=== PATIENT | female | born 1945 | race Caucasian/White ===

== ENCOUNTER 2016-10-16 06:24 | Day surgery (SDC) | payer MEDICARE, MEDICAID ==
--- NOTE | 2016-10-09 12:51 | HP ---
CC: Dr. Steele HISTORY AND PHYSICAL: DATE OF PLANNED ADMISSION AND SURGERY: 10/16/16 HISTORY OF PRESENT ILLNESS: Ms. Robertson is a 71-year-old white female with metastatic uterine carcinoma, obstructed right ureter, status post placement of right ureteral stent, who is admitted for cystoscopy and right ureteral stent exchange. Ms. Robertson was diagnosed with uterine carcinoma in January 2013 and underwent radical hysterectomy. Postoperatively she was noted to have obstruction of the distal Rt ureter, and had right ureteral stent placed in February 2013. Since that time, she was noted to have metastatic disease and has been on chemotherapy. The ureteral obstruction had persisted and has been managed by periodic ureteral stent exchange. The right ureteral stent was last exchanged in March 2016. She is now admitted for elective right ureteral stent exchange. The patient had preoperative urine culture which showed no growth. PAST MEDICAL HISTORY AND SYSTEM REVIEW: Negative otherwise . She is hypertensive maintained on amlodipine 10 mg daily. She has been on systemic chemotherapy for malignancy. ALLERGIES: She denies any allergies to medications. PHYSICAL EXAMINATION GENERAL: Pleasant white female, who looks pale and does look like she has lost weight. VITAL SIGNS: Blood pressure 120/80, pulse of 90. LUNGS: Clear. Now she has no CVA tenderness. HEART: Regular and rhythmic. No murmurs. ABDOMEN: Normal. IMPRESSION: Metastatic uterine carcinoma with right ureteral obstruction, managed by right ureteral stent drainage. PLAN: Plan is for cystoscopy and right ureteral stent exchange. I discussed the above plans with the patient and all her questions were answered. [id number]/CPS #: [id number] MTDD
[~2016-10-16 06:24] MED LIST: Sodium Citrate/Citric Acid* 15 ML UDC PO ONE
[2016-10-16] MEDS ORDERED: Buffered Lidocaine 1% SYRIN* 5 ML/SYR SYRINGE ONE (06:49)
[2016-10-16] MEDS ORDERED: cefTRIAXone(*) 2 GM ADDV.VIAL IVPB ONE (06:49)
[2016-10-16] MEDS ORDERED: Sodium Citrate/Citric Acid* 15 ML UDC ONE (06:49)
[2016-10-16] MEDS ORDERED: Iohexol 180 (CONTRAST) 10 ML SDV IV ONE (07:30)
[2016-10-16] MEDS ORDERED: fentaNYL* 50 MCG/ML 2 ML VIAL (100 MCG VIAL) IV PRN (08:06)
[2016-10-16] MEDS ORDERED: Ketorolac INJ* 30 MG/ML 1 ML VIAL IV PRN (08:06)
[2016-10-16] MEDS ORDERED: Ondansetron INJ* 2 MG/ML VIAL IV PRN (08:06)
--- NOTE | 2016-10-16 08:51 | RAD ---
INDICATION: Retrograde cystogram, ureteral stent exchange COMPARISONS: April 03, 2016 TECHNIQUE: Fluoroscopy was provided for a retrograde pyelogram and stent placement. Total fluoroscopy time is: 8 seconds FINDINGS: Spot images demonstrate contrast within the renal collecting system. A ureteral stent is noted. IMPRESSION: FLUOROSCOPY WAS PROVIDED FOR A RETROGRADE PYELOGRAM AND STENT PLACEMENT CPT II Codes: 6045F
[2016-10-16 09:14] VITALS: BP 150/85
--- NOTE | 2016-10-16 12:04 | OP ---
CC: Dr. Steele OPERATIVE REPORT: DATE OF OPERATION: 10/16/16 DATE OF : 49 SURGEON: Fidel Dahl MD ANESTHESIOLOGIST: Angel Mathur DO ANESTHESIA: General. PRE-OP DIAGNOSES: 1. Metastatic uterine carcinoma. 2. Right ureteral obstruction due to above. 3. Status post placement of right ureteral stent. POST-OP DIAGNOSES: 1. Metastatic uterine carcinoma. 2. Right ureteral obstruction due to above. 3. Status post placement of right ureteral stent. OPERATIVE PROCEDURES: 1. Cystoscopy. 2. Right retrograde pyelography. 3. Right ureteral stent exchange (black silicone, 24-cm, 8.5-Mauritian). INDICATION FOR PROCEDURE: Mrs. Robertson is a 71-year-old white female with metastatic uterine carcinoma that had resulted in right ureteral obstruction. She had been managed with right ureteral stent dra palafox. The stent was last replaced about 6 months ago. The patient now is admitted for ureteral st ent exchange. Pathology at cystoscopy, the bladder mucosa showed some hyperemia consistent with the irritation of the stent. The distal limb of the stent was seen coming from the right ureteral orif ice. Upon right retrograde pyelography, there was some fullness of the collecting system and some d ilatation of the proximal ureter, but no olegario hydronephrosis. DESCRIPTION OF PROCEDURE: After successful general anesthesia, the patient was placed in the lithot avtar position and was prepped and draped in the usual manner. Cystoscopy was performed. The bladder was inspected and the above findings were noted. The distal limb of the stent was pulled to the lev el of the urethral meatus. A flexible-tip guidewire was then introduced through the lumen of the st ent and positioned in the area of the renal pelvis. Retrograde pyelography was performed. A black silicone stent, 24-cm long, 8.5 Mauritian was then fed on top of the guidewire and positioned with the proximal end coiling in the renal pelvis and the distal end-coiling inside the bladder. There was g ood drainage of contrast from the kidney and no extravasation. The patient tolerated the procedure well and left the operating room in good condition. The plan is to follow with the patient for poss ible recurrence of the hydronephrosis and replacement of the stent as needed. [id number]/[facility] #: [id number]
== END 2016-10-16 09:18 | disposition home or self-care (01) ==
LOC: OR 06:24
PROVIDERS: ATTEND Urology
DX: C79.82 Secondary malignant neoplasm of genital organs (principal); N13.5 Crossing vessel and stricture of ureter without hydronephrosis
CPT/HCPCS: 74420; A9270-GY; C1876; J0696

== ENCOUNTER 2016-12-26 15:11 | Inpatient (IN) | payer MEDICARE, MEDICAID ==
[2016-12-26] MEDS ORDERED: PROCHLORPERAZINE INJ 5 MG/ML 2 ML VIAL IV PRN (15:34)
[2016-12-26] MEDS ORDERED: Temazepam CAP* 15 MG PO PRN (15:35)
[2016-12-26] MEDS ORDERED: NS 0.9% 1000 ML* 1,000 ML IV SCH (15:45)
[2016-12-26] MEDS ORDERED: cefTRIAXone VIAL(*) 1,000 MG in NS 0.9% 50 ML* 50 ML IVPB SCH (19:00)
[2016-12-26] MEDS: Docusate CAP* 100 MG PO SCH (21:12)
[2016-12-26] MEDS: Acetaminophen TAB* 325 MG PO PRN (23:26)
[2016-12-27 06:22] LABS: Hematocrit 26 % (35-47); Hemoglobin 8.7 g/dl (12.0-16.0); Mean Corpuscular HGB Conc 33 g/dl (31-36); Mean Corpuscular Hemoglobin 35 pg (27-31); Mean Corpuscular Volume 104 fL (80-97); Mean Platelet Volume 8 um3 (7.4-10.4); Red Blood Count 2.51 10^6/ul (4.0-5.4); Red Cell Distribution Width 14 % (10.5-15)
[2016-12-27] MEDS: Acetaminophen TAB* 325 MG PO PRN ×2 (06:26→17:43)
[2016-12-27 06:40] LABS: Albumin 2.6 g/dL (3.2-5.2); BUN/Creatinine Ratio 13.1 (8-20); Calcium 8.1 mg/dL (8.6-10.3); Globulin 3.3 g/dL (2-4); Potassium 4.6 mmol/L (3.5-5.0); Total Bilirubin 0.3 mg/dL (0.2-1.0); Total Protein 5.9 g/dL (6.4-8.9)
[2016-12-27] MEDS: amLODIPine TAB* 5 MG PO SCH (08:50)
[2016-12-27] MEDS ORDERED: Pneumococcal Vac Polyvalent* 0.5 ML VIAL IM ONE (09:00)
--- NOTE | 2016-12-27 10:39 | PN ---
Progress Note - Progress Note Date of Service: 12/27/16 SOAP: ADDENDUM: Agree with note from RY Pugh. Patient seen and examined. She is feeling fatigued, no different then admission. Has has pressure when tries to urinate. PE: VSS, No distress, CTA, no abdominal pain, no MIRANDA and good pulses. CT reviewed and shows progressive disease and new hydronephrosis. Labs with leukocytosis and ARF on CRI. - Agree with Zosyn and CXR - New stent once afebrile. - Aggressive hydration and check lactate [] []
[2016-12-27] MEDS ORDERED: Iohexol 180 (CONTRAST) 10 ML SDV IV ONE (10:57)
[2016-12-27] MEDS ORDERED: Zosyn per Pharmacy* NOTE FOLLOW UP SCH (11:00)
[2016-12-27] MEDS ORDERED: cefTRIAXone VIAL(*) 1,000 MG VIAL ONE ×2 (11:16→11:35)
[2016-12-27] MEDS ORDERED: Midazolam* 1 MG/ML 5 ML VIAL (5 MG) ONE (11:40)
[2016-12-27] MEDS ORDERED: fentaNYL* 50 MCG/ML 2 ML VIAL (100 MCG VIAL) ONE (11:49)
[2016-12-27] MEDS ORDERED: Propofol* 10 MG/ML 20 ML BTL IV PUSH ONE (12:05)
[2016-12-27] MEDS ORDERED: HYDROmorphone* 1 MG/ML 1 ML SYR IV PRN (12:11)
[2016-12-27] MEDS ORDERED: fentaNYL* 50 MCG/ML 2 ML VIAL (100 MCG VIAL) IV PRN (12:11)
[2016-12-27] MEDS ORDERED: DiMENhydriNATE IV* 50 MG/ML VIAL IV PUSH PRN (12:11)
[2016-12-27] MEDS ORDERED: Ondansetron INJ* 2 MG/ML VIAL IV PRN (12:11)
--- NOTE | 2016-12-27 14:56 | RAD ---
HISTORY: Fever COMPARISONS: CT of the chest dated December 04, 2016 VIEWS: 2: Frontal and lateral views of the chest. FINDINGS: CARDIOMEDIASTINAL SILHOUETTE: The cardiomediastinal silhouette is normal. MINDY: The mindy are normal. PLEURA: There is a small right pleural effusion LUNG PARENCHYMA: Again noted are multiple pulmonary parenchymal nodules ABDOMEN: The upper abdomen is clear. There is no subphrenic gas. BONES AND SOFT TISSUES: No bone or soft tissue abnormalities are noted. OTHER: There is left-sided chest port from a subclavian approach with the tip overlying the superior vena cava IMPRESSION: 1. SMALL RIGHT PLEURAL EFFUSION. 2. AGAIN NOTED ARE MULTIPLE PULMONARY NODULES
--- NOTE | 2016-12-27 15:12 | RAD ---
INDICATION: Right stent exchange COMPARISONS: None relevant TECHNIQUE: Fluoroscopy was provided for a retrograde pyelogram and stent placement. Total fluoroscopy time is: 5 seconds FINDINGS: Contrast is noted within the renal collecting system on the right. A ureteral stent is noted. IMPRESSION: FLUOROSCOPY WAS PROVIDED FOR A RETROGRADE PYELOGRAM AND STENT PLACEMENT CPT II Codes: 6045F
[2016-12-27] MEDS ORDERED: cefTRIAXone VIAL(*) 1,000 MG in NS 0.9% 50 ML* 50 ML IVPB SCH (15:30)
[2016-12-27] MEDS: Docusate CAP* 100 MG PO SCH (21:55)
--- NOTE | 2016-12-28 02:34 | OP ---
CC: Dr. Steele * DATE OF OPERATION: 12/27/16 - ROOM #402 DATE OF : 49 SURGEON: Kehinde Zavaleta MD ANESTHESIOLOGIST: Jorge Cook MD ANESTHESIA: Intravenous sedation. PRE-OP DIAGNOSIS: Right hydronephrosis. POST-OP DIAGNOSIS: Right hydronephrosis. OPERATIVE PROCEDURE: Cystoscopy, right retrograde pyelogram, right ureteral stent change. INDICATIONS: Nohemi Robertson is a 71-year-old lady with advanced gynecologic malignancy causing right hydronephrosis, who has been managed with an indwelling right stent. She was admitted with fever and was noted to have worsening right hydronephrosis in spite of having a stent in position, and is now being brought in for urgent stent change. COMPLICATIONS: None. STENT USED: 8.5-Swedish, 24-cm silicone stent, right ureter. DESCRIPTION OF PROCEDURE: After administration of intravenous sedation, the patient was placed in dorsal lithotomy position. Sequential compression devices were in place and functioning. Initial cystoscopy revealed some cloudy , purulent urine in the bladder. The previously placed stent was seen and removed. A guidewire was introduced into the right ureter. Retrograde pyelogram was done in the limited fashion to avoid bacteremia and fullness of the right collecting system was noted. About 30 cc of thick pus was aspirated from the right kidney and some of it was sent for culture. A new 8.5-Swedish, 24 -cm silicone stent was introduced in position under fluoroscopy with good proximal and distal positioning obtained. The patient tolerated the procedure satisfactorily and was transferred back to the recovery area in stable condition. [id number]/CPS #: [id number] [facility]
[2016-12-28 05:28] LABS: Hematocrit 25 % (35-47); Hemoglobin 8.2 g/dl (12.0-16.0); Mean Corpuscular HGB Conc 33 g/dl (31-36); Mean Corpuscular Hemoglobin 35 pg (27-31); Mean Corpuscular Volume 104 fL (80-97); Mean Platelet Volume 7 um3 (7.4-10.4); Red Blood Count 2.37 10^6/ul (4.0-5.4); Red Cell Distribution Width 14 % (10.5-15); White Blood Count 8.6 10^3/ul (3.5-10.8)
[2016-12-28 06:47] LABS: Albumin 2.2 g/dL (3.2-5.2); Calcium 7.6 mg/dL (8.6-10.3); EGFR African American 18.7 (>60); EGFR Non-African American 14.6 (>60); Globulin 3.1 g/dL (2-4); Potassium 4.3 mmol/L (3.5-5.0); Total Bilirubin 0.3 mg/dL (0.2-1.0); Total Protein 5.3 g/dL (6.4-8.9)
[2016-12-28] MEDS: amLODIPine TAB* 5 MG PO SCH (07:58)
[2016-12-28] MEDS: Docusate CAP* 100 MG PO SCH (22:45)
[2016-12-29 05:44] LABS: Hematocrit 28 % (35-47); Hemoglobin 9.3 g/dl (12.0-16.0); Mean Corpuscular HGB Conc 34 g/dl (31-36); Mean Corpuscular Hemoglobin 34 pg (27-31); Mean Corpuscular Volume 102 fL (80-97); Mean Platelet Volume 7 um3 (7.4-10.4); Red Blood Count 2.72 10^6/ul (4.0-5.4); Red Cell Distribution Width 14 % (10.5-15); White Blood Count 7.3 10^3/ul (3.5-10.8)
[2016-12-29] MEDS: amLODIPine TAB* 5 MG PO SCH (09:51)
[2016-12-29] MEDS: Heparin VIAL(*) 5000 UNITS/ML VIAL (FIVE THOUSAND) SUBCUT SCH ×2 (14:16→22:39)
[2016-12-29 14:30] LABS: Hematocrit 26 % (35-47); Hemoglobin 8.5 g/dl (12.0-16.0); Mean Corpuscular HGB Conc 33 g/dl (31-36); Mean Corpuscular Hemoglobin 34 pg (27-31); Mean Corpuscular Volume 103 fL (80-97); Mean Platelet Volume 7 um3 (7.4-10.4); Red Blood Count 2.52 10^6/ul (4.0-5.4); Red Cell Distribution Width 14 % (10.5-15); White Blood Count 6.3 10^3/ul (3.5-10.8)
[2016-12-29 14:40] LABS: EGFR African American 20.8 (>60); EGFR Non-African American 16.2 (>60)
[2016-12-29 14:41] LABS: BUN/Creatinine Ratio 11.2 (8-20); Calcium 7.3 mg/dL (8.6-10.3); EGFR Non-African American 16.3 (>60); Potassium 3.8 mmol/L (3.5-5.0)
[2016-12-30] MEDS: Heparin VIAL(*) 5000 UNITS/ML VIAL (FIVE THOUSAND) SUBCUT SCH (05:46)
[2016-12-30 06:33] LABS: BUN/Creatinine Ratio 9.7 (8-20); Calcium 7.4 mg/dL (8.6-10.3); EGFR African American 22.8 (>60); EGFR Non-African American 17.7 (>60); Potassium 3.6 mmol/L (3.5-5.0)
[2016-12-30 10:14] VITALS: BP 128/54
[2016-12-30] MEDS: amLODIPine TAB* 5 MG PO SCH (10:15)
--- NOTE | 2016-12-30 21:57 | DS ---
DISCHARGE SUMMARY: DATE OF ADMISSION: 12/26/16 DATE OF DISCHARGE: 12/30/16 ATTENDING PHYSICIAN: Dr. Steele * (DICTATED BY RY RAMOS) PRINCIPAL DIAGNOSES: 1. Hydronephrosis. 2. Acute renal insufficiency. 3. Urinary tract infections, status post stent placement in the right ureter, size changer by Dr. Zavaleta. 4. Ovarian cancer DISCHARGE MEDICATION : unchanged from her home medications. HISTORY: The patient is a 71-year-old white female with a history of ovarian cancer who is status post stent placement, came to the office for fever and malaise and found to have an elevated white count and a creatinine of 3.4, which was 1.5 plus per baseline. She was diaz cultured and placed on antibiotic therapy and a renal ultrasound was obtained and found to have a new hydronephrosis on the right. A consult was initiated with Dr. Dahl and Dr. Zavaleta for which they exchanged her stent out and per my conversation with Dr. Zavaleta on the phone, he found pus up in to the calyx of the kidney and would need continued IV antibiotics and hospitalization. The patient defervesced and with aggressive fluid hydration, the patient's creatinine has somewhat normalized almost to her baseline at 2.6. She feels much better, is eating better and would like to go home. She has finished her course of antibiotic therapy and she will finish her last dose of Zosyn today. She will return to Dr. Steele's office on 01/03/17, for her next Avastin if she feels well enough or soon as scheduled for followup hospital visit. She will also need to follow with Dr. Dahl in the office status post stent replacement. Her vital signs are afebrile and stable upon the day of her discharge. Her Toure was removed and she will need to urinate on her own prior to her discharge. RY RAMOS [id number]/[facility] #: [id number] MTDD
== END 2016-12-30 16:05 | disposition home or self-care (01) | DRG 694 ==
LOC: MED 15:40
PROVIDERS: ADMIT Internal Medicine Hematology & Oncology; ATTEND Internal Medicine Hematology & Oncology
PROC: 0TP98DZ Removal of Intraluminal Device from Ureter, Via Natural or Artificial Opening Endoscopic (ICD-10-PCS; 2016-12-27)
PROC: 0T768DZ Dilation of Right Ureter with Intraluminal Device, Via Natural or Artificial Opening Endoscopic (ICD-10-PCS; 2016-12-27)
PROC: BT1DYZZ Fluoroscopy of Right Kidney, Ureter and Bladder using Other Contrast (ICD-10-PCS; principal; 2016-12-27 12:00)
DX: N13.39 Other hydronephrosis (principal); N17.9 Acute kidney failure, unspecified; C54.9 Malignant neoplasm of corpus uteri, unspecified; E78.00 Pure hypercholesterolemia, unspecified; F17.210 Nicotine dependence, cigarettes, uncomplicated; N18.9 Chronic kidney disease, unspecified; Z79.899 Other long term (current) drug therapy
CPT/HCPCS: 36415; 71020; 74020; 74420; 76775; 80048; 80053; 81003; 81015; 82565; 83605; 84520; 85025; 85610; 85730; 86304; 87040; 87086; 90732; 94760; 99232; 99238; 99406; A9270-GY; C1876; J0696; J1644; J2250; J2543; J2704; J3010; J9035

== ENCOUNTER 2017-04-16 06:13 | Day surgery (SDC) | payer MEDICARE, MEDICAID ==
--- NOTE | 2017-03-28 07:42 | HP ---
CC: Dr. Steele * HISTORY AND PHYSICAL: DATE OF PLANNED ADMISSION AND SURGERY: 04/16/17 HISTORY OF PRESENT ILLNESS: Mrs. Robertson is a 71-year-old white female with metastatic uterine carcinoma, right ureteral obstruction on chronic right ureteral stent drainage, who is admitted for cystoscopy and right ureteral stent exchange. Mrs. Robertson has metastatic uterine carcinoma that had resulted in obstruction of the distal right ureter. She had been managed with a right ureteral stent placement. The stent had been periodically replaced over the last 4 years. The patient was treated with chemotherapy. More recently, her tumor has recurred and has had progression of this metastatic disease. She is presently on chemotherapy, followed by Dr. Steele. The right ureteral stent was last replaced on 12/27/16. At that time, it was done on an urgent basis because of right hydronephrosis and right pyelonephritis. She has had no recurrence of her renal or bladder symptoms. She was recently evaluated in the office with renal ultrasound, which showed moderate right hydronephrosis and right ureteral stent in good position. Because of the above history and finding and the right hydronephrosis and the concern about acute obstruction and infection, patient is admitted for right ureteral stent exchange. PAST MEDICAL HISTORY AND SYSTEM REVIEW: She is hypertensive, on amlodipine 10 mg daily. MEDICATIONS: She has been on systemic chemotherapy for her uterine carcinoma. ALLERGIES: She denies any allergies to medications. PHYSICAL EXAMINATION GENERAL: Pleasant white female who looks pale and has lost weight since last seen. VITAL SIGNS: Blood pressure 140/80, pulse of 90, temperature 98. LUNGS: Clear. HEART: Regular and rhythmic. No murmurs. ABDOMEN: Moderately distended but no masses are felt and no CVA tenderness. IMPRESSION: Metastatic uterine carcinoma with right ureteral obstruction managed with chronic right ureteral stent drainage. PLAN: For cystoscopy and right ureteral stent exchange. I discussed the above plans with the patient and all her questions were answered. [id number]/[facility] #: [id number] MTDD
[~2017-04-16 06:13] MED LIST changes: +Buffered Lidocaine 0.9% SYRIN* 5 ML/SYR SYRINGE INTRADERM ONE; +Famotidine IV* 10 MG/ML 2 ML (20 mg) IV ONE; +Metoclopramide TAB* 10 MG PO ONE; -Sodium Citrate/Citric Acid* 15 ML UDC PO ONE
[2017-04-16] MEDS ORDERED: Famotidine IV* 10 MG/ML 2 ML (20 mg) ONE (06:32)
[2017-04-16] MEDS ORDERED: Metoclopramide TAB* 10 MG ONE (06:32)
[2017-04-16] MEDS ORDERED: cefTRIAXone(*) 2 GM ADDV.VIAL IVPB ONE (06:33)
[2017-04-16] MEDS ORDERED: Buffered Lidocaine 0.9% SYRIN* 5 ML/SYR SYRINGE ONE (06:33)
[2017-04-16] MEDS ORDERED: Iohexol 180 (CONTRAST) 10 ML SDV IV ONE (07:25)
[2017-04-16] MEDS ORDERED: Lidocaine 2% PF * 5 ML VIAL ONE (07:25)
[2017-04-16] MEDS ORDERED: KETAMINE HCL* 50 MG/ML 10 ML VIAL ONE (07:25)
[2017-04-16] MEDS ORDERED: Propofol* 10 MG/ML 20 ML BTL IV PUSH ONE (07:25)
[2017-04-16] MEDS ORDERED: Dexamethasone IV* 4 MG/ML 1 ML (4 MG) ONE (07:25)
[2017-04-16] MEDS ORDERED: Ketorolac INJ* 30 MG/ML 1 ML VIAL ONE (07:25)
[2017-04-16] MEDS ORDERED: Ondansetron INJ* 2 MG/ML VIAL ONE (07:25)
[2017-04-16] MEDS ORDERED: fentaNYL* 50 MCG/ML 2 ML VIAL (100 MCG VIAL) ONE (07:25)
[2017-04-16] MEDS ORDERED: Midazolam* 1 MG/ML 5 ML VIAL (5 MG) ONE (07:26)
[2017-04-16] MEDS ORDERED: fentaNYL* 50 MCG/ML 2 ML VIAL (100 MCG VIAL) IV PRN (08:32)
[2017-04-16] MEDS ORDERED: Ondansetron INJ* 2 MG/ML VIAL IV PRN (08:32)
[2017-04-16] MEDS ORDERED: oxyCODONE TAB* 5 MG TAB PO PRN (08:32)
--- NOTE | 2017-04-16 08:47 | RAD ---
CPT II Codes: 6045F INDICATION: Right ureteral stent exchange. TECHNIQUE: Intraoperative fluoroscopy was provided during right ureteral stent exchange. FINDINGS: 6 spot films depict retrograde pyelogram exhibiting mild to moderate hydronephrosis followed by deployment of an anatomically aligned right ureteral stent. Fluoroscopy time: 6 seconds IMPRESSION: As above.
[2017-04-16 09:40] VITALS: BP 139/77
--- NOTE | 2017-04-16 12:59 | OP ---
CC: Dr. Steele * DATE OF OPERATION: 04/16/17 - [facility] DATE OF : 49 SURGEON: Fidel Dahl MD ANESTHESIOLOGIST: Dr. Satinder Powell. ANESTHESIA: General. PRE-OP DIAGNOSES: 1. Metastatic uterine carcinoma. 2. Right ureteral obstruction due to above. 3. Status post placement right ureteral stent. POST-OP DIAGNOSES: 1. Metastatic uterine carcinoma. 2. Right ureteral obstruction due to above. 3. Status post placement right ureteral stent. OPERATIVE PROCEDURE: 1. Cystoscopy. 2. Right retrograde pyelography. 3. Right ureteral stent exchange (black silicone, 24 cm, 8.5-Honduran). INDICATION FOR PROCEDURE: Mrs. Robertson is a 71-year-old white female with metastatic endometrial uterine carcinoma that resulted in right ureteral obstruction. This has been managed by right ureteral stent, which has been replaced periodically over the last 4 years. She had urgent replacement of the stent 3 months ago because of hydronephrosis associated with pyelonephritis. A recent renal ultrasound in the office showed moderate right hydronephrosis indicating the stent starting to get occluded. The patient is being brought in for right ureteral stent exchange. PATHOLOGY: At cystoscopy, the bladder mucosa showed patchy hyperemia consistent with cystitis or irritation from the ureteral stent. Right retrograde pyelography showed moderate right hydronephrosis. There were no suspicious lesions in the bladder to suggest malignancy. DESCRIPTION OF PROCEDURE: After successful general anesthesia, the patient was placed in the lithotomy position and was prepped and draped for a cystoscopy. Cystoscopy was performed. The bladder was inspected and the above findings were noted. The distal limb of the stent was grasped and pulled out to the level of the urethral meatus. A flexible tip guidewire was introduced through the lumen of the stent and positioned in the area of the renal pelvis. Retrograde pyelography was then performed demonstrating the moderate hydronephrosis. A black silicone stent, 24 cm long, 8.5-Honduran was then placed with the proximal end coiling in the renal pelvis and the distal end coiling inside the bladder. The patient tolerated the procedure well and left the operating room in good condition. [id number]/CPS #: [id number] MTDD
== END 2017-04-16 10:00 | disposition home or self-care (01) ==
LOC: OR 06:13
PROVIDERS: ATTEND Urology
DX: C79.82 Secondary malignant neoplasm of genital organs (principal); N13.1 Hydronephrosis with ureteral stricture, not elsewhere classified; I10 Essential (primary) hypertension; Z79.899 Other long term (current) drug therapy
CPT/HCPCS: 74420; A9270-GY; C1876; J0696; J1100; J1885; J2250; J2405; J2704; J3010

== ENCOUNTER 2017-08-20 07:37 | Day surgery (SDC) | payer MEDICARE, MEDICAID ==
--- NOTE | 2017-08-18 16:58 | HP ---
CC: Dr. Shay Steele * HISTORY AND PHYSICAL: DATE OF PLANNED ADMISSION AND SURGERY: 08/20/17 HISTORY OF PRESENT ILLNESS: Ms. Robertson is a 72-year-old white female with metastatic uterine carcinoma, right ureteral obstruction, status post placement of right ureteral stent, who is admitted for cystoscopy and right ureteral stent exchange. Ms. Robertson was diagnosed with metastatic uterine carcinoma in 2012. She was treated by hysterectomy, radiation therapy, and brachytherapy. She was noted in February 2013 to have an obstructed distal right ureter and she has been managed with right ureteral stent. The stent was last replaced in March 2017. Her disease has advanced and recent CT of the chest, abdomen, and pelvis showed multiple pulmonary parenchymal lesions, large liver masses, and retroperitoneal lymphadenopathy. She is on chemotherapy by Dr. Steele. She has decreased renal function and her last serum creatinine was 3.5 consistent with her previous numbers. The last CT done 2 months ago showed no hydronephrosis indicating that the decreased renal function is not due to obstruction. The patient also had recurrent urinary tract infections and her last urine culture showed gram-neg bacilli and she was started on Augmentin prior to this admission. ALLERGIES: The patient has no allergies to medications. PHYSICAL EXAMINATION GENERAL: She is a pleasant white female, who looks pale and losing weight. LUNGS: Exam of the lungs is normal. BACK: She has mild right CVA tenderness. ABDOMEN: Normal. IMPRESSION: 1. Metastatic uterine carcinoma, on chemotherapy, with obstructed right ureter , managed with chronic right ureteral stent. 2. Urinary tract infection. PLAN: For cystoscopy and right ureteral stent exchange. I discussed the above plans with the patient and all her questions were answered. [id number]/[facility] #: [id number] [facility]
[~2017-08-20 07:37] MED LIST changes: +Dexamethasone IV* 4 MG/ML 1 ML (4 MG) IV SLOW PU ONE; -Metoclopramide TAB* 10 MG PO ONE; +cefTRIAXone(*) 1 GM in NS 0.9% 50 ML* 50 ML IVPB ONE
[2017-08-20] MEDS ORDERED: Dexamethasone IV* 4 MG/ML 1 ML (4 MG) ONE (07:55)
[2017-08-20] MEDS ORDERED: cefTRIAXone(*) 1 GM ADVAN/BAG ONE (07:55)
[2017-08-20] MEDS ORDERED: Famotidine IV* 10 MG/ML 2 ML (20 mg) ONE (07:55)
[2017-08-20] MEDS ORDERED: Iohexol 180 (CONTRAST) 10 ML SDV IV ONE (08:58)
[2017-08-20] MEDS ORDERED: Ketorolac INJ* 30 MG/ML 1 ML VIAL IV PRN (08:59)
[2017-08-20] MEDS ORDERED: fentaNYL* 50 MCG/ML 2 ML VIAL (100 MCG VIAL) IV PRN (08:59)
[2017-08-20] MEDS ORDERED: Naloxone* 0.4 MG/ML 1 ML VIAL IV PRN (08:59)
[2017-08-20] MEDS ORDERED: HYDROcodone/ACETAMIN 5-325 MG* 1 TAB PO PRN (08:59)
[2017-08-20] MEDS ORDERED: DiMENhydriNATE IV* 50 MG/ML VIAL IV PUSH PRN (08:59)
[2017-08-20] MEDS ORDERED: Lidocaine 2% PF * 5 ML VIAL ONE (09:12)
[2017-08-20] MEDS ORDERED: Propofol* 10 MG/ML 20 ML BTL IV PUSH ONE (09:12)
[2017-08-20] MEDS ORDERED: Ondansetron INJ* 2 MG/ML VIAL ONE (10:15)
[2017-08-20] MEDS ORDERED: fentaNYL* 50 MCG/ML 2 ML VIAL (100 MCG VIAL) ONE (10:17)
[2017-08-20 11:56] VITALS: BP 144/72
--- NOTE | 2017-08-20 23:19 | OP ---
CC: Dr. Steele * DATE OF OPERATION: 08/20/17 - [facility] DATE OF : 49 SURGEON: Fidel Dahl MD ANESTHESIOLOGIST: Jose L Lawler MD ANESTHESIA: General. PRE-OP DIAGNOSES: 1. Metastatic uterine carcinoma. 2. Right ureteral obstruction due to above. 3. Status post placement of right ureteral stent. POST-OP DIAGNOSIS: 1. Metastatic uterine carcinoma. 2. Right ureteral obstruction due to above. 3. Status post placement of right ureteral stent. OPERATIVE PROCEDURE: 1. Cystoscopy. 2. Right retrograde pyelography. 2. Right ureteral stent exchange (black silicone, 24 cm, 8.5-East Timorese). INDICATIONS: Mrs. Robertson is a 72-year-old female, who has a metastatic carcinoma of the uterus that had resulted in right ureteral obstruction. She has been managed with a chronic right ureteral stent and the stent has been replaced periodically. She has advancing disease with enlarging liver masses and is still on chemotherapy. She had chronic urinary tract infection and was started on Augmentin preoperatively. She is here for a stent exchange. PATHOLOGY: At cystoscopy, the bladder mucosa showed hyperemia consistent with cystitis. The distal limb of the stent was seen coming from the right ureteral orifice. Right retrograde pyelography showed minimal hydronephrosis. DESCRIPTION OF PROCEDURE: After successful general anesthesia, the patient was placed in the lithotomy position and was prepped and draped for cystoscopy. Cystoscopy was performed. The findings in the bladder were noted. The right ureteral stent was pulled out to the level of the urethral meatus. A flexible tip guidewire was then passed through the lumen of the stent and positioned in the area of the renal pelvis. Retrograde pyelography was performed. A black silicone stent, 24 cm long, 8.5-East Timorese was then placed with the proximal end coiling in the renal pelvis and the distal end coiling inside the bladder. There was good drainage of contrast from the kidney. The patient tolerated the procedure well and left the operating room in good condition. [id number]/[facility] #: [id number] MTDD
--- NOTE | 2017-08-21 10:07 | RAD ---
INDICATION: Right ureteral stent exchange COMPARISON: None FINDINGS: 11 seconds of fluoroscopy were provided for the urology department. Fluoroscopic spot imaging of the abdomen were obtained for operative control and show a right retrograde examination correlating and right ureteral stent placement . CPT II Codes: G9500 (fluoro time doc)
== END 2017-08-20 11:58 | disposition home or self-care (01) ==
LOC: OR 07:37
PROVIDERS: ATTEND Urology
DX: N13.5 Crossing vessel and stricture of ureter without hydronephrosis (principal); C55 Malignant neoplasm of uterus, part unspecified; C78.7 Secondary malignant neoplasm of liver and intrahepatic bile duct; N39.0 Urinary tract infection, site not specified; R59.0 Localized enlarged lymph nodes; I10 Essential (primary) hypertension; Z72.0 Tobacco use; D64.9 Anemia, unspecified
CPT/HCPCS: 74420; C1876; J0696; J1100; J2405; J2704; J3010